=== PATIENT | male | born 1950 | race Caucasian/White ===

== ENCOUNTER 2017-05-12 03:29 | Emergency (ER) | payer MEDICARE, OTHER ==
[2017-05-12] MEDS ORDERED: SOD CHLORIDE 0.9% 1,000 ML IV (04:22)
[2017-05-12] MEDS ORDERED: NORepinephrine 8MG/250 ML (PMX 250 ML IV (04:30)
[2017-05-12] MEDS ORDERED: AMIODARONE 150MG/D5W BOLUS 100 ML IV (04:30)
[2017-05-12] MEDS ORDERED: AMIODARONE 900 MG in DEXTROSE 5% 482 ML IV (04:30)
[2017-05-12] MEDS ORDERED: PROPOFOL 100 ML IV (04:30)
[2017-05-12] MEDS ORDERED: CA CHLORIDE 10% 10 ML SYRINGE (07:00)
[2017-05-12] MEDS ORDERED: AMIODARONE 900 MG INJ (07:00)
[2017-05-12] MEDS ORDERED: SUCCINYLCHOLINE CHLORIDE 100 MG/5 ML SYG IV (07:00)
[2017-05-12] MEDS ORDERED: EPINEPHrine 0.1 MG/ML SYG (07:00)
[2017-05-12] MEDS ORDERED: MAGNESIUM SULFATE 1 GM/100 ML D5W IVPB (07:00)
== END 2017-05-12 07:31 | disposition expired ==
LOC: E/R 03:29
DX: I46.9 Cardiac arrest, cause unspecified (principal); E11.9 Type 2 diabetes mellitus without complications; I10 Essential (primary) hypertension
CPT/HCPCS: 31500; 92950; 93005; 99291-25